=== PATIENT | female | born 1980 | race Caucasian/White ===

== ENCOUNTER 2024-06-26 06:55 | Emergency (ER) | payer BC, SELFPAY ==
[2024-06-26] MEDS ORDERED: ONDANSETRON 4 MG/2 ML VIAL ONE (07:20)
[2024-06-26] MEDS ORDERED: NA CHLORIDE 0.9% 1,000 ML ONE (07:20)
[2024-06-26 07:26] LABS: Absolute Basophils 0.1 K/uL (0-0.5); Absolute Eosinophils 0.4 K/uL (0-0.5); Absolute Lymphocytes (CBC) 3.1 K/uL (0.7-4.9); Absolute Monocytes 0.4 K/uL (0.1-1.3); Absolute Neutrophil 3.5 K/uL (1.8-8.0); Basophils % 1.4 % (0-1.3); Eosinophils % 4.7 % (0-4.4); Hematocrit 43.3 % (36.0-45.0); Hemoglobin 13.9 g/dL (12.0-15.0); Lymphocytes % 41.7 % (15.3-44.8); MCH 26.9 pg (27.0-35.0); MCHC 32.1 g/dL (32.0-36.0); MCV 83.8 fL (80-100); Monocytes % 5.7 % (3.3-12.3); Neutrophils % 46.5 % (41.7-73.7); Platelets 384 thou/uL (152-406); RBC Red Blood Cell Count 5.16 M/uL (3.86-4.86); Red Cell Distribution Width 15.5 % (12.1-15.2)
[2024-06-26 07:27] LABS: Specific Gravity 1.018 (1.005-1.030)
[2024-06-26 07:34] LABS: Urine Bacteria <20 /HPF (<20); Urine Culture Reflex Order REFLEXED; Urine Micro Reflex YN NO BILL MICROSCOPIC; Urine Mucus 1+ /HPF (None Seen); Urine RBC >50 /HPF (None Seen)
[2024-06-26 07:38] LABS: SARS-CoV-2 Antigen CONTROL BLUE LINE VIS/BG OK; SARS-CoV-2 Antigen Rapid Res Negative (Negative)
[2024-06-26 07:42] LABS: Albumin 3.9 g/dL (3.4-5.0); Albumin/Globulin Ratio 1.1 (1.1-1.8); Anion Gap 9.7 mEq/L (5.0-15.0); Bilirubin Total 0.6 mg/dL (0.2-1.0); Globulin 3.6 g/dL (2.3-3.5); Potassium 2.7 mEq/L (3.5-5.1); Protein, Total 7.5 g/dL (6.4-8.2)
--- NOTE | 2024-06-26 08:23 | RAD REPORT ---
EXAMINATION: CT ABDOMEN AND PELVIS WITH CONTRAST CLINICAL INDICATION: Female, 43 years old.Abd pain;Nausea / vomiting TECHNIQUE: CT abdomen and pelvis was performed, after the administration of IV contrast, as per [facility] protocol. Axial, sagittal and coronal reconstructions were obtained. One or more of the following dose reduction techniques were used: Automated exposure control, adjustment of the mA and/o r kV according to patient size, and/or iterative reconstruction. Unless otherwise specified, incidental findings do not require dedicated imaging follow-up. [id number]. COMPARISON: No prior exam. LOWER CHEST: No acute process identified.No significant pericardial effusion. Mild circumferential th ickening of the distal esophagus which could reflect esophagitis. UPPER GI: No significant abnormality. LIVER: Benign appearing low density liver lesions. No suspicious mass. Hepatic steatosis GALLBLADDER/BILE DUCTS: No biliary ductal dilatation.? PANCREAS: No mass, ductal dilation, or amador-pancreatic fluid. SPLEEN: Unremarkable. ADRENALS: No adrenal masses. KIDNEYS AND URETERS: Normal size and contour. No hydronephrosis.No suspicious renal mass. ABDOMINAL AORTA AND OTHER VESSELS: Normal caliber aorta and IVC. PERITONEUM: No abnormal free fluid. No free air. LYMPH NODES: No pathologic lymphadenopathy. ABDOMINAL WALL: Tiny fat-containing ventral hernia. SMALL BOWEL/COLON: Small bowel has normal course and caliber. No colonic wall thickening or pericolon ic inflammatory changes.Normal appendix. URINARY BLADDER: Underdistended but grossly unremarkable. REPRODUCTIVE ORGANS: No pathologic process. MUSCULOSKELETAL: Mild disc height loss L5-S1. ADDITIONAL FINDINGS: None. IMPRESSION: No acute or significant abnormalities seen in the abdomen or pelvis. Normal appendix.
[2024-06-26] MEDS ORDERED: HYDROCODONE/APAP 10/325 TAB ONE (08:26)
--- NOTE | 2024-06-26 09:23 | ER ---
Nurse's Notes [facility] Name: Flavia Lindo Age: 43 yrs Sex: Female : 1980 Arrival Date: 06/26/2024 Time: 06:55 Bed 20 Private MD: Diagnosis: Nausea with vomiting, unspecified;Diarrhea, unspecified Presentation: 06/26 07:05 Chief complaint: Patient states: abd pain, N/V/D that began 3 days ago. Coronavirus ss screen: Client denies travel out of the [place] in the last 14 days. Ebola Screen: Patient denies exposure to infectious person. Patient denies travel to an Ebola-affected area in the 21 days before illness onset. Initial Sepsis Screen: Does the patient meet any 2 criteria? No. Patient's initial sepsis screen is negative. Does the patient have a suspected source of infection? No. Patient's initial sepsis screen is negative. Risk Assessment: Do you want to hurt yourself or someone else? Patient reports no desire to harm self or others. Onset of symptoms was June 23, 2024. 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 - Infectious Disease History:: Denies. - Family history:: not pertinent. - Hospitalizations: : No recent hospitalization is reported. - Social history:: Smoking status: unknown. Screenin:36 [facility] ED Fall Risk Assessment (Adult) History of falling in the last 3 months, ll1 including since admission No falls in past 3 months (0 pts) Confusion or Disorientation No (0 pts) Intoxicated or Sedated No (0 pts) Impaired Gait No (0 pts) Mobility Assist Device Used No (0 pt) Altered Elimination No (0 pt) Score/Fall Risk Level 0 - 2 = Low Risk Maintained a safe environment, Hourly rounding (assess needs \T\ fall precautionary measures) done. Abuse screen: Denies threats or abuse. Nutritional screening: No deficits noted. Tuberculosis screening: No symptoms or risk factors identified. Assessment: 07:05 General: Appears uncomfortable, Behavior is calm, cooperative, appropriate for age. ll1 Pain: Complains of pain in abdomen Pain currently is 7 out of 10 on a pain scale. Quality of pain is described as aching, crampy. Neuro: Reports headache weakness. Respiratory: Reports cough that is dry, getting better. GI: Reports lower abdominal pain, upper abdominal pain, cramping, nausea, vomiting. 08:21 Reassessment: No changes from previously documented assessment. Patient and/or family ll1 updated on plan of care and expected duration. Pain level reassessed. Patient is alert, oriented x 3, equal unlabored respirations, skin warm/dry/pink. 08:36 Reassessment: No changes from previously documented assessment. Patient and/or family ll1 updated on plan of care and expected duration. Pain level reassessed. Patient is alert, oriented x 3, equal unlabored respirations, skin warm/dry/pink. 09:52 GI: Bowel sounds present X 4 quads. Abd is soft and non tender X 4 quads. 1 Vital Signs: 07:05 BP 182 / 123; Pulse 103; Resp 16; Pulse Ox 100% on R/A; ss 08:35 BP 157 / 87; Pulse 73; Resp 16; Pulse Ox 100% ; Pain 7/10; ll1 09:52 BP 142 / 95; Pulse 79; Resp 16; Pulse Ox 100% ; Pain 2/10; ll1 08:35 Pain Scale: Adult ll1 09:52 Pain Scale: Adult ll1 ED Course: 06:57 Patient arrived in ED. [email or web address] 06:59 Pankaj Orta, RN is Primary Nurse. ll1 06:59 Carlos Jamil MD is Attending Physician. rn 06:59 Arm band placed on Patient placed in an exam room, on a stretcher. ll1 07:05 Triage completed. ss 07:05 Patient has correct armband on for positive identification. Bed in low position. 1 Provided Education on: ER procedures and process. 07:15 Initial lab(s) drawn, by me, sent to lab. Inserted saline lock: 22 gauge in left ll1 antecubital area, using aseptic technique. Blood collected. Flushed with 10 mL NS. 07:18 Flu Sent. ss 07:18 SARS-COV-2 Antigen Rapid Sent. ss 07:18 Test, Urine Sent. ss 08:14 CT Abd/Pelvis - IV Contrast Only In Process Unspecified. EDMS 09:52 No provider procedures requiring assistance completed. IV discontinued, intact, ll1 bleeding controlled, No redness/swelling at site. Pressure dressing applied. Administered Medications: 07:25 Drug: Ondansetron IVP 4 mg IVP once; over 2 minutes Route: IVP; Site: left antecubital; ll1 08:35 Follow up: Response: No adverse reaction; Nausea is decreased ll1 07:25 Drug: NS 0.9% IV 1000 ml IV at 1 bolus Per protocol; to be given as a bolus over 60 ll1 minutes Route: IV; Rate: 1 bolus; Site: left antecubital; 08:35 Follow up: Response: No adverse reaction; IV Status: Completed infusion; IV Intake: ll1 1000ml 08:35 Drug: HYDROcodone-acetaminophen PO 10 mg-325 mg 1 tabs PO once {Note: pain 7/10 RASS ll1 0.} Route: PO; 09:53 Follow up: Response: No adverse reaction; Pain is decreased; RASS: Alert and Calm (0) ll1 Medication: 08:36 VIS not applicable for this client. ll1 Intake: 08:35 IV: 1000ml; Total: 1000ml. 1 Outcome: 09:22 Discharge ordered by . faustino 09:52 Discharged to home ambulatory, [facility] 09:52 Condition: stable 09:52 Discharge instructions given to patient, Instructed on discharge instructions, follow up and referral plans. medication usage, Demonstrated understanding of instructions, follow-up care, medications, Prescriptions given X 1, 09:53 Patient left the ED. [facility] Signatures: Dispatcher [employer] EDMA Carlos Jamil MD MD rn Blanchard, Shelby, RN RN Pankaj Sanderson RN RN 1 Reena Iglesias [email or web address] Corrections: (The following items were deleted from the chart) 07:24 07:18 Urinalysis+U.LAB.BRZ drawn and sent. EDMA
--- NOTE | 2024-06-26 09:23 | EDPHYS ---
Physician Documentation [facility] Name: Flavia Lindo Age: 43 yrs Sex: Female : 1980 Arrival Date: 06/26/2024 Time: 06:55 Bed 20 Private MD: ED Physician Carlos Jamil HPI: 06/26 07:05 This 43 yrs old Female presents to ER via Unassigned with complaints of Abdominal Pain, rn Nausea/Vomiting. 07:05 The patient presents to the emergency department with nausea, vomiting, diarrhea, rn abdominal pain. Onset: The symptoms/episode began/occurred 3 day(s) ago. Possible causes: sick contacts, by family. The symptoms are aggravated by nothing. The symptoms are alleviated by nothing. Severity of symptoms: At their worst the symptoms were moderate in the emergency department the symptoms are unchanged. The patient has not experienced similar symptoms in the past. Patient reports 3 days of nausea and vomiting plus diarrhea, started with cough and congestion, now having mid abdominal cramping and pain. No blood in stool or emesis. No fevers. Patient reports multiple family members sick last week as well as coworkers.. 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 - Infectious Disease History:: Denies. - Family history:: not pertinent. - Hospitalizations: : No recent hospitalization is reported. - Social history:: Smoking status: unknown. ROS: 07:05 Constitutional: Negative for fever, chills, and weight loss, ENT: Positive for cough rn and congestion Cardiovascular: Negative for chest pain, palpitations, and edema, Respiratory: Negative for shortness of breath, cough, wheezing, and pleuritic chest pain, Abdomen/GI: Positive for abdominal pain with nausea and vomiting and diarrhea : Negative for injury, bleeding, discharge, and swelling, MS/Extremity: Negative for injury and deformity, Skin: Negative for injury, rash, and discoloration, Neuro: Positive for generalized weakness and malaise Exam: 07:05 Constitutional: This is a well developed, well nourished patient who is awake, alert, rn and in no acute distress. Ambulatory to room while using phone Head/Face: Normocephalic, atraumatic. ENT: Dry mucous membranes, dry lips Cardiovascular: Tachycardic, regular Respiratory: Lungs have equal breath sounds bilaterally, clear to auscultation and percussion. No rales, rhonchi or wheezes noted. No increased work of breathing, no retractions or nasal flaring. Abdomen/GI: Soft, mild mid abdominal tenderness without rebound or guarding MS/ Extremity: Pulses equal, no cyanosis. Neurovascular intact. Full, normal range of motion. Equal circumference. Neuro: Awake and alert, GCS 15 Vital Signs: 07:05 BP 182 / 123; Pulse 103; Resp 16; Pulse Ox 100% on R/A; ss 08:35 BP 157 / 87; Pulse 73; Resp 16; Pulse Ox 100% ; Pain 7/10; ll1 09:52 BP 142 / 95; Pulse 79; Resp 16; Pulse Ox 100% ; Pain 2/10; ll1 08:35 Pain Scale: Adult ll1 09:52 Pain Scale: Adult ll1 MDM: 06:59 Medical Screening Exam initiated rn 09:21 Differential diagnosis: Nonspecific abd pain, gastritis, cholecystitis, pancreatitis, rn appendicitis, diverticulitis, viral gastroenteritis, gastroenteritis. Data reviewed: vital signs, nurses notes, lab test result(s), radiologic studies, CT scan, and as a result, I will discharge patient. Counseling: I had a detailed discussion with the patient and/or guardian regarding the historical points, exam findings, and any diagnostic results supporting the discharge/admit diagnosis, lab results, radiology results, the need for outpatient follow up, to return to the emergency department if symptoms worsen or persist or if there are any questions or concerns that arise at home. Response to treatment: the patient's symptoms have markedly improved after treatment, and as a result, I will discharge patient. Special discussion: Based on the patient's Hx, exam, and Dx evaluation, there is no indication for emergent surgery or inpatient Tx. It is understood by the patient/guardian that if the Sx's persist or worsen they need to return immediately for re-evaluation. I discussed with the patient/guardian in detail that at this point there is no indication for admission to the hospital. It is understood, however, that if the symptoms persist or worsen the patient needs to return immediately for re-evaluation. ED course: Most likely viral syndrome given upper respiratory symptoms followed by GI symptoms. Flu and COVID-negative. CT abdomen pelvis without acute findings. Patient feels much better. I have personally reviewed all of the results, including but not limited to blood tests and imaging deemed necessary to safely discharge this patient at this time. All results given to and printed out for patient. I personally went over all the results with the patient and answered all questions. Patient will follow-up with PCP and or specialist as discussed. Return precautions given and understood.. 06/26 07:04 Order name: CBC with Diff; Complete Time: 08:13 06/26 07:04 Order name: CMP; Complete Time: 08:13 06/26 07:04 Order name: Lipase; Complete Time: 08:13 06/26 07:04 Order name: Test, Urine; Complete Time: 08:13 06/26 07:04 Order name: Flu; Complete Time: 08:13 06/26 07:04 Order name: SARS-COV-2 Antigen Rapid; Complete Time: 08:13 06/26 07:24 Order name: Urine Microscopic Only; Complete Time: 08:13 EDTN 06/26 07:37 Order name: Urine Culture EDTN 06/26 07:04 Order name: CT Abd/Pelvis - IV Contrast Only; Complete Time: 08:27 06/26 07:04 Order name: IV Saline Lock; Complete Time: 07:18 06/26 07:04 Order name: Labs collected and sent; Complete Time: 07:18 rn Administered Medications: 07:25 Drug: Ondansetron IVP 4 mg IVP once; over 2 minutes Route: IVP; Site: left antecubital; ll1 08:35 Follow up: Response: No adverse reaction; Nausea is decreased ll1 07:25 Drug: NS 0.9% IV 1000 ml IV at 1 bolus Per protocol; to be given as a bolus over 60 ll1 minutes Route: IV; Rate: 1 bolus; Site: left antecubital; 08:35 Follow up: Response: No adverse reaction; IV Status: Completed infusion; IV Intake: ll1 1000ml 08:35 Drug: HYDROcodone-acetaminophen PO 10 mg-325 mg 1 tabs PO once {Note: pain 7/10 RASS ll1 0.} Route: PO; 09:53 Follow up: Response: No adverse reaction; Pain is decreased; RASS: Alert and Calm (0) ll1 Disposition Summary: 06/26/24 09:22 Discharge Ordered Notes: Location: Home rn Problem: new rn Symptoms: have improved rn Condition: Stable rn Diagnosis - Nausea with vomiting, unspecified rn - Diarrhea, unspecified rn Followup: rn - With: Private Physician - When: As needed - Reason: Recheck today's complaints, Re-evaluation by your physician Discharge Instructions: - Diarrhea, Adult rn - Nausea and Vomiting, Adult rn - Discharge Summary Sheet ll1 Forms: - Medication Reconciliation Form rn - 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 EDMS EDMS
[2024-06-26 10:14] VITALS: O2SAT 100
[2024-06-26 10:18] VITALS: BP 142/95
== END 2024-06-26 09:53 | disposition home or self-care (01) ==
LOC: ER 06:55
DX: R11.2 Nausea with vomiting, unspecified (principal); R19.7 Diarrhea, unspecified; Z11.52 Encounter for screening for COVID-19
CPT/HCPCS: 96361; 87088; 85025; 87086; 36415; 81025; 81015; 83690; 80053; 87804 ×2; 74177; 96374; 99284; 87811; Q9967; J2405; J7030